=== PATIENT | male | born 1990 | race Caucasian/White ===

== ENCOUNTER 2017-09-28 08:51 | Emergency (ER) | payer MEDICAID, OTHER ==
[2017-09-28 08:55] VITALS: BMI 24.3
[2017-09-28] MEDS ORDERED: Sodium Chloride 0.9% 1,000 ML IV ONE (09:18)
[2017-09-28] MEDS ORDERED: DiphenhydrAMINE 50 mg/ml Inj IVP STA (09:19)
[2017-09-28] MEDS ORDERED: Sodium Chloride 0.9% 1,000 ML ONE (09:35)
[2017-09-28] MEDS ORDERED: DiphenhydrAMINE 50 mg/ml Inj ONE (09:36)
[2017-09-28 09:39] LABS: BASO # 0.1 K/uL (0.0-0.2); BASO % 0.7 % (0.0-2.0); EOS % 0.4 % (0.0-4.0); HEMOGLOBIN 16.5 g/dL (12.0-18.0); LYMPH # 2.4 K/uL (1.0-4.3); LYMPH % 20.5 % (20.0-40.0); MEAN CELL VOLUME 92.6 fL (80.0-94.0); MEAN CORPUSCULAR HEMOGLOBIN 31.6 pg (27.0-31.0); MEAN CORPUSCULAR HGB CONC 34.1 g/dL (33.0-37.0); MEAN PLATELET VOLUME 8.7 fL (7.2-11.7); MONO # 0.9 K/uL (0.0-0.8); MONO % 7.6 % (0.0-10.0); NEUT # 8.4 K/uL (1.8-7.0); NEUT % 70.8 % (50.0-75.0); RBC 5.22 Mil/uL (4.40-5.90); RED CELL DISTRIBUTION WIDTH 13.2 % (11.5-14.5); WHITE BLOOD COUNT 11.9 K/uL (4.8-10.8)
[2017-09-28 09:48] LABS: URINE BILIRUBIN NEGATIVE (NEGATIVE); URINE BLOOD NEGATIVE (NEGATIVE); URINE CLARITY Clear (Clear); URINE COLOR Yellow (YELLOW); URINE GLUCOSE (UA) NORMAL (Normal); URINE LEUKOCYTE ESTERASE NEG Leu/uL (Negative); URINE PROTEIN NEGATIVE (NEGATIVE); URINE UROBILINOGEN NORMAL mg/dL (0.2-1.0)
[2017-09-28 09:51] LABS: ALB/GLOB RATIO 1.5 (1.0-2.1); ALT/SGPT 32 U/L (21-72); AST/SGOT 42 U/L (17-59); BLOOD UREA NITROGEN 11 mg/dL (9-20); CALCIUM 9.9 mg/dl (8.6-10.4); GFR AFRICAN-AMERICAN > 60; GFR NON-AFRICAN AMERICAN > 60; LIPASE 32 U/L (23-300)
--- NOTE | 2017-09-28 10:42 | C.PDOC ---
History Of Present Illness 27 year old male, whose PMHx includes Asthma, presents to the ED for evaluation of generalized malaise, intermittent headache, nausea, and 5-6 episodes of non- bilious vomiting which began 2 days ago associated with mild epigastric pain. Today, patient woke up feeling short of breath and had some chest tightness. Patient states , " I feel dehydrated". Otherwise, pt denies fever, chills, severe headache, sore throat, drooling, dysphagia, dyspnea, wheezing, cough, CP , palpitation, diaphoresis, hematemesis, diarrhea, melena, back pain, UTI sx. At [facility] time of evaluation, pt appears comofrtable, not in any apparent distress. Time Seen by Provider: 09/28/17 09:12 Chief Complaint (Nursing): Shortness Of Breath Past Medical History Reviewed: Historical Data, Nursing Documentation, Vital Signs Vital Signs: Last Vital Signs Temp 98.7 F 09/28/17 11:20 Pulse 79 09/28/17 11:20 Resp 17 09/28/17 11:20 BP 119/66 09/28/17 11:20 Pulse Ox 99 09/28/17 12:03 - Medical History PMH: Asthma Surgical History: No Surg Hx Family History: States: Unknown Family Hx - Social History Hx Tobacco Use: No Hx Alcohol Use: Yes Hx Substance Use: No - Immunization History Hx Tetanus Toxoid Vaccination: No Hx Influenza Vaccination: No Hx Pneumococcal Vaccination: No Review Of Systems Constitutional: Positive for: Malaise, Other (dehydration ). Negative for: Fever, Chills ENT: Negative for: Ear Pain, Ear Discharge, Nose Discharge, Nose Congestion, Throat Pain, Throat Swelling Cardiovascular: Negative for: Chest Pain, Palpitations Respiratory: Positive for: Shortness of Breath, Other (chest tightness ) Gastrointestinal: Positive for: Nausea, Vomiting. Negative for: Abdominal Pain , Diarrhea Skin: Negative for: Rash Neurological: Positive for: Headache. Negative for: Altered Mental Status, Dizziness Physical Exam - Physical Exam Appears: Non-toxic, No Acute Distress Skin: Normal Color, Warm, Dry, No Rash Head: Normacephalic Eye(s): bilateral: PERRL Ear(s): Bilateral: Normal Nose: No Flaring, No Discharge Oral Mucosa: Moist, No Drooling Throat: No Erythema, No Exudate Neck: Trachea Midline, Supple, No Other (meningeal signs ) Cardiovascular: Rhythm Regular, No Murmur, No JVD Respiratory: No Decreased Breath Sounds, No Accessory Muscle Use, No Stridor, No Wheezing Gastrointestinal/Abdominal: Soft, Tenderness (mild, epigastric ), No Distention , No Guarding, No Rebound Back: No CVA Tenderness Extremity: Normal ROM, No Deformity, No Swelling Neurological/Psych: Oriented x3, Normal Speech ED Course And Treatment - Laboratory Results Result Diagrams: 09/28/17 09:33 09/28/17 09:33 Lab Interpretation: No Acute Changes O2 Sat by Pulse Oximetry: 99 Pulse Ox Interpretation: Normal Progress Note: Bloodwork and urinalysis ordered and reviewed. Benadryl IVP, Pepcid IVP, Protonix IVP, Zofran IVP and IV Fluids administered. Pt was OBS in ED for 2.5 hours and reports improvement in sx after ED tx. On re-evaluation, pt is afebrile, hemodynamicaly stable. Non-toxic. Tolerate PO well in ED. PulseOx 99% RA. Neck: Supple, (-) meningeal sign. ENT: no acute findings. Lungs: CTA B/L, BS equal B/L. CVS: (+)S1S2, reg. Abd: benign, (-) guarding, (- ) rebound. Neurologicaly intact. Blood work review and appears normal, no leukocytosis, no evidence of dehydration. Pt has clinical findings c/w vomiting , epigastric pain, polysubstabce abuse. Pt advised. ref. to f/u with PMD in 2- 3 days for re-eval. return if any new changes. Disposition Counseled Patient/Family Regarding: Studies Performed, Diagnosis, Need For Followup, Rx Given - Disposition Referrals: [facility] [Outside] Disposition: HOME/ ROUTINE Disposition Time: 11:23 Condition: STABLE Additional Instructions: Encourage fluids Take medication as prescribed Follow up with PMD in 2-3 days for re-evaluation. return to ED if any worsening or new changes. Prescriptions: Famotidine [Pepcid] 20 mg PO BID #20 tab Ondansetron ODT [Zofran ODT] 1 odt PO BID PRN #6 odt PRN Reason: Nausea/Vomiting Instructions: Nausea and Vomiting, Adult (DC), Polysubstance Abuse Forms: [employer] (Togolese) - Clinical Impression Clinical Impression: Vomiting, Polysubstance abuse, Epigastric abdominal pain - PA / [employer] SERVICE REPRESENTATIVE / Resident Statement MD/DO has reviewed & agrees with the documentation as recorded. - Scribe Statement The provider has reviewed the documentation as recorded by the Scribe (Sandra Maurer) All medical record entries made by the Scribe were at my direction and personally dictated by me. I have reviewed the chart and agree that the record accurately reflects my personal performance of the history, physical exam, medical decision making, and the department course for this patient. I have also personally directed, reviewed, and agree with the discharge instructions and disposition.
[2017-09-28 10:55] LABS: BARBITURATES, UR NEGATIVE (NEGATIVE); BENZODIAZEPINES, UR NEGATIVE (NEGATIVE); OPIATES, UR NEGATIVE (NEGATIVE); PHENCYCLIDINE, UR NEGATIVE (NEGATIVE)
[2017-09-28 11:23] VITALS: BP 119/66; PULSE 79; RESP 17; TEMP 98.7
[2017-09-28 11:24] VITALS: O2SAT 99
== END 2017-09-28 12:26 | disposition home or self-care (01) ==
LOC: C.ER 08:51
DX: R11.10 Vomiting, unspecified (principal); R10.13 Epigastric pain; F19.10 Other psychoactive substance abuse, uncomplicated
CPT/HCPCS: 80053; 81001; 83690; 85025; 96361; 96374; 96375; 99285; C9113; G0480; J1200; J2405; J7040